=== PATIENT | female | born 1995 | race Caucasian/White ===

== ENCOUNTER 2019-04-15 16:27 | Emergency (ER) | payer BC ==
[2019-04-15 17:02] VITALS: BP 146/80
--- NOTE | 2019-04-15 17:40 | UC ---
FLU HPI - HPI Summary HPI Summary: 24 y/o female presents to the urgent care c/o sore throat,nasal congestion w/ clear nasal discharge for the past 2 days. She has taken oTC medications w/o any improvement. Sore throat is 2/10. She has PMHX of asthma and last night she developed mild wheezing. She doesn't have her Her albuterol inhaler has . She denies any cough, but it is concerned of getting an asthma exacerbation. Pt denies fever, cough, SOB, chest pain, NUNEZ, dizziness, abdominal pain, N/V/D. - History of Current Complaint Chief Complaint: UCRespiratory Stated Complaint: COUGH, CONGESTION Time Seen by Provider: 04/15/19 17:37 Hx Obtained From: Patient Hx Last Menstrual Period: 04/12/19 Onset/Duration: Gradual Onset Severity Currently: Mild Severity Initially: Moderate Pain Intensity: 2 Pain Scale Used: 0-10 Numeric - Allergy/Home Medications Allergies/Adverse Reactions: Allergies Allergy/AdvReac Type Severity Reaction Status Date / Time No Known Allergies Allergy Verified 04/15/19 16:57 Home Medications: Home Medications Bupropion XL* [Wellbutrin XL *] 150 mg PO DAILY 04/15/19 [History Confirmed 08/27] PMH/Surg Hx/FS Hx/Imm Hx Previously Healthy: Yes Respiratory History: Asthma - Surgical History Surgical History: None - Family History Known Family History: Positive: None - Pt denies FMHX - Social History Occupation: Employed Full-time Lives: With Family Alcohol Use: Occasionally Substance Use Type: Marijuana Smoking Status (MU): Never Smoked Tobacco Review of Systems All Other Systems Reviewed And Are Negative: Yes Constitutional: Positive: Chills, Fatigue, Other - body aches Skin: Positive: Negative Eyes: Positive: Negative ENT: Positive: Sore Throat, Nasal Discharge - clear, Sinus Congestion Respiratory: Positive: Other - mild wheezing Cardiovascular: Positive: Negative Gastrointestinal: Positive: Negative Genitourinary: Positive: Negative Motor: Positive: Negative Neurovascular: Positive: Negative Musculoskeletal: Positive: Negative Neurological: Positive: Negative Psychological: Positive: Negative Is Patient Immunocompromised?: No Physical Exam - Summary Physical Exam Summary: Vital Signs Reviewed: Yes General: well developed, well nourished female sitting in the examining table w/ o any apparent distress Eyes: Positive: Conjunctiva Clear - PERRLA, EOMI, fundi grossly normal ENT: Positive: Normal ENT inspection, Hearing grossly normal, Pharynx normal, Nasal congestion - edematous and erythematous nasal mucosa, Nasal drainage - yellowish drainage, TMs normal. Negative: Tonsillar swelling, Tonsillar exudate Neck: Positive: Supple, Nontender, No Lymphadenopathy Respiratory: no orthopnea or dyspnea. Able to speak in full sentences, no retractions or accessory muscle use, no tripod position, stridor, or head bobbing. Positive breath sounds bilaterally. Mild scattered wheezing on posterior b/L lungs, no rhonchi, no crackles or rales. Cardiovascular: Positive: RRR, No Murmur, Pulses Normal, Brisk Capillary Refill Abdomen Description: Positive: Nontender, No Organomegaly, Soft. Negative: CVA Tenderness (R), CVA Tenderness (L) Bowel Sounds: Positive: Present Musculoskeletal Exam: Normal Musculoskeletal: Positive: Strength Intact, ROM Intact, No Edema Neurological Exam: Normal Psychological Exam: Normal Skin Exam: Normal Triage Information Reviewed: Yes Vital Signs: Initial Vital Signs Temp 98.2 F 04/15/19 16:58 Pulse 106 04/15/19 16:58 Resp 16 04/15/19 16:58 BP 146/80 04/15/19 16:58 Pulse Ox 100 04/15/19 16:58 Flu Course/Dx - Course Course Of Treatment: 24 y/o female presents to the urgent care c/o sore throat,nasal congestion w/ clear nasal discharge for the past 2 days. She has taken oTC medications w/o any improvement. Sore throat is 2/10. She has PMHX of asthma and last night she developed mild wheezing. She doesn't have her Her albuterol inhaler has . She denies any cough, but it is concerned of getting an asthma exacerbation. Pt denies fever, cough, SOB, chest pain, NUNEZ, dizziness, abdominal pain, N/V/D. Hx obtained. Pt w/ mild scattered wheezing on b/L posterior lungs, no rhonchi, no crackles or rales and URI on examination. O2Sat : 100%. Pt given albuterol Treatment by the nurse to alleviate symptoms. Pt tolerated well treatment and lungs improved,and wheezing resolved. Rapdi strep : negative, Rapid influenza A&B: negative.Pt advised to increase fluid intake, rest and eat well, Rx albuterol inhaler to alleviate symptoms and advised to take Ibuprofen PO for sore throat. Pt's BP is elevated today advised to decrease salt in diet, monitor BP and f/u with PCP if BP continues to be elevated for further management.D/C instructions explained.Pt understood and agreed with D/C instructions. - Differential Dx/Diagnosis Differential Diagnosis/HQI/PQRI: Bronchitis, Influenza, Upper Respiratory Infection Provider Diagnosis: Upper respiratory infection, Wheezing, Elevated BP without diagnosis of hypertension Discharge ED - Sign-Out/Discharge Documenting (check all that apply): Patient Departure - D/c home All imaging exams completed and their final reports reviewed: No Studies - Discharge Plan Condition: Stable Disposition: HOME Prescriptions: Albuterol HFA INHALER* [Ventolin HFA Inhaler*] 1 - 2 puff INH Q6H PRN #1 mdi PRN Reason: Wheezing Patient Education Materials: Wheezing (ED) Referrals: [facility] [Outside] - 3 Days Additional Instructions: 1-RApid strep: negative, Rapid influenza A&B: negative. 2- Do the Albuterol nebulizer treatment or use the albuterol inhaler to alleviate wheezing. Increase fluid intake, rest and eat well. 3- If symptoms do not improve or worsen or your develop SOB with fever and severe wheezing please go immediately to the ER further evaluation and treatment. 4- F/u with your PCP in 3 days for further management on your Asthma if not improvement of symptoms. 5- Your BP is elevated today advised to decrease salt in diet, monitor BP and f/ u with PCP for further management. - Billing Disposition and Condition Condition: STABLE Disposition: Home
[2019-04-15 17:47] LABS: Influenza A Molecular Negative (Negative); Influenza B Molecular Negative (Negative)
[2019-04-15] MEDS ORDERED: Albuterol 2.5 MG/3 ML NEB.SOL* (0.083%) INH ONE (17:51)
== END 2019-04-15 18:21 | disposition home or self-care (01) ==
LOC: UCCORT 16:27
DX: J06.9 Acute upper respiratory infection, unspecified (principal); R06.2 Wheezing; R03.0 Elevated blood-pressure reading, without diagnosis of hypertension; J45.909 Unspecified asthma, uncomplicated
CPT/HCPCS: 87651; 99202; G0463